=== PATIENT | female | born 1965 | race Caucasian/White ===

== ENCOUNTER 2017-03-08 14:25 | Emergency (ER) | payer OTHER, MEDICARE, MEDICAID ==
[~2017-03-08] VITALS: Ht 172.7 cm; Wt 86.4 kg
[~2017-03-08 14:25] MED LIST: ALBU18HF INH; ATOR10TA66 PO; CITA40TA13 PO; FLUT9.9S NS; GABA800T2 PO; HYDR-3825 PO; IBUP-1827 PO; LEVO125T6 PO; LORA1TAB PO; MELA1TAB16 PO; METH750T3 PO; OMEP20CA11 PO
[2017-03-08 14:29] VITALS: BP 122/75; PULSE 105; RESP 16; O2SAT 97
--- NOTE | 2017-03-08 14:53 | DRSVH ---
PROCEDURE: CT BRAIN WITHOUT CONTRAST ([id number]) INDICATIONS: trauma TECHNIQUE: Noncontrast 4.5 mm thick angled axial sections acquired from the foramen magnum to the vertex, with c oronal reformats. COMPARISON: [facility], CT, CT BRAIN WO CON, 08/17/2015, 10:44. FINDINGS: Image quality: Excellent. CSF spaces: Basal cisterns are patent. No extra-axial fluid collections. Ventricles are normal in size and shape. Brain: No midline shift. No intracranial masses or hemorrhage. Focal resection cavity versus encep halomalacia within the right cerebellum is unchanged. Locke-white matter interface is normal. Skull and face: Suboccipital craniectomy has been performed , as before. Calvarium and visualized fa cial bones are otherwise intact, without suspicious lesions. Sinuses: Visualized sinuses and mastoids are clear. IMPRESSION: 1. Postsurgical sequelae. 2. No acute process. Dictated by: Bess Castellanos M.D. on 03/08/2017 at 14:51 Approved by: Bess Castellanos M.D. on 03/08/2017 at 14:52
--- NOTE | 2017-03-08 15:17 | ED.REPORT ---
HPI-Trauma Minor / Fall Date of Service Mar 08, 2017 ED Provider: Laith Roy MD A 51 year old female with a history of brain cancer s/p brain tumor resection x2 , thyroid cancer s/p thyroidectomy and lung cancer presents to the ED complaining of lightheadedness. The pt fell two days ago when she tripped on her cat, hitting her head on the carpeted floor. She did not lose consciousness but vomited two hours later. Since the fall, the pt has been lightheaded and finds that she is unable to sleep normally. She denies chest pain, shortness of breath or abnormal headache. The pt has been remaining hydrated and does not believe that her symptoms are due to dehydration. Nursing Notes Stated Complaint: LIGHT HEADED RECENT FALL Chief Complaint: Head, Face, Neck Trauma Allergies: Coded Allergies: No Known Allergies (Verified Allergy, Unknown, 03/08/17) Scheduled Atorvastatin Calcium (Atorvastatin Calcium) 10 Mg Tablet 10 MG PO DAILY Citalopram (Citalopram) 40 Mg Tablet 40 MG PO DAILY Fluticasone Propionate (Flonase Allergy Relief) 50 Mcg/Actuation [place].susp 9.9 ML NS DAILY Gabapentin (Gabapentin) 800 Mg Tablet 800 MG PO TID Levothyroxine (Levothyroxine) 125 Mcg Tablet 125 MCG PO DAILY Omeprazole (Omeprazole) 20 Mg Capsule.dr 20 MG PO DAILY Scheduled PRN Albuterol Sulfate (Ventolin HFA Inhaler) 200 Puff/18 Gm Inhaler 1 PUFF INH Q4 PRN PRN For Wheezing Hydrocodone-Acetaminophen 7.5-325 mg (Hydrocodone-Acetaminophen 7.5-325 mg) 1 Each Tablet 1 TABLET PO Q4H PRN PRN For Pain Ibuprofen (Ibuprofen) 600 Mg Tablet 600 MG PO TID PRN PRN For Pain Lorazepam (Lorazepam) 1 Mg Tablet 1 MG PO BID PRN PRN For Insomnia Melatonin/Pyridoxine (Melatonin 5 mg Tablet) 1 Each Tablet 1 EACH PO HS PRN PRN Insomnia Methocarbamol (Methocarbamol) 750 Mg Tablet 750 MG PO Q6H PRN PRN For Spasm General Time Seen by MD: 14:34 Chief Complaint Other (Lightheadedness) Hx Obtained From: Patient Arrived By: Walk-in Onset Occurred: 2 days ago Recent Healthcare: No recent hospitalization, Recent doctor visit Similar Sx Previous: No Past Medical History Past Medical History brain, lung and thyroid cancer Reports: Cancer, GERD Reports: Depression, Thyroid disease Past Surgical History right wrist surgery shoulder surgery thyroidectomy 2 brain tumors resected Smoking History Heavy Tobacco Smoker Social History Alcohol Use: Denies alcohol use Drug Use: Denies drug use Ambulatory Status Independent Review of Systems Review of Systems Note: unable to sleep normally Constitutional: Denies: Fever Respiratory: Denies: Non-productive cough, Shortness of breath Musculoskeletal: Denies: Back pain, Neck pain Skin: Denies Rash Neurologic: Reports: Lightheaded, Denies: Headache Complete sys rev & neg: except as marked. Cardiovascular: Denies: Chest pain GI: Reports: Vomiting, Denies: Abdominal pain Physical Exam Initial Vital Signs Vital Signs (First) Date Time Temp Pulse Resp B/P Pulse Ox O2 Delivery O2 Flow Rate FiO2 03/08/17 14:29 36.7 105 16 122/75 97 Room Air Initial VS: Reviewed General/Constitutional: Awake, Alert Neck: Atraumatic, Supple, Full range of motion Head / Eyes: Normocephalic, PERRL, EOMI subacute abrasion on the right forehead ENT: Atraumatic, Airway patent, Mucous membranes moist, Tympanic membs NL Respiratory / Chest: Atraumatic, Breath sounds NL, Breath sounds = bilat, No respiratory distress Cardiovascular: Heart rate NL, Regular rhythm, Heart sounds NL, No murmurs Abdomen: Atraumatic, Soft, Non-tender Back: Atraumatic, Full range of motion Upper Extremity / MS: Atraumatic, Full range of motion Lower Extremity / Pelvis / MS: Atraumatic, Full range of motion, No edema Skin: Color NL, No rash, Warm, Dry Neurologic: Oriented X3, Speech NL, No motor deficits, No sensory deficits, CN II - XII intact Psychiatric: Affect NL, Mood NL Interpretation & Diagnostics CT Head Interpretation IMPRESSION: 1. Postsurgical sequelae. 2. No acute process. Dictated by: Bess Castellanos M.D. on 03/08/2017 at 14:51 Approved by: Bess Castellanos M.D. on 03/08/2017 at 14:52 Interpretation / Wet Read by: Interpret - Radiologist Re-Eval/Medical Decision Med Decision/Clinical Course 51-year-old female history of brain tumor presenting status post, fall and head trauma several days ago. CT brain no acute pathology. Her neurological exam is normal. I discussed with her that I recommended labs for her vomiting and lightheadedness. She declined any further testing. She understands the risk of the possibility of . Return precautions given. Source of Hx: Old records Re-Evaluation/Progress : Time of Eval: 15:15 Patient Status: Condition improved Re-Evaluation/Progress Note: The diagnosis and plan for discharge are discussed. The pt understands and agrees with the plan. All questions are addressed at this time. Counseled Regarding: Diagnosis, Lab results, Need for follow-up, When/why to return to ED Discharge & Departure Impression: Primary Impression: Concussion Encounter type: initial encounter Loss of consciousness presence/duration: without LOC Qualified Code: S06.0X0A - Concussion without loss of consciousness, initial encounter Disposition: Home Discharge Condition All VS Reviewed: Yes Condition: Stable Patient Instructions: Concussion (ED) Additional Instructions: Thank you for entrusting us with your care. You have declined further labs or workup. We cannot be sure without further testing, but we suspect that you have a concussion. Concussion symptoms include confusion, headache, ringing ears, lightheadedness and dizziness. These symptoms can last up to four weeks. Go home and rest. Call your primary care physician to arrange a follow up appointment in the next several days. Return to the emergency department if you develop any new or worsening symptoms including worsening headache, vomiting, confusion, fever, blurred vision, difficulty speaking/swallowing, weakness or numbness/tingling. Referrals: Lizette Ordoñez (PCP) Scribe Attestation Portions of this note were transcribed by He Molina. I, Dr. Roy personally performed the history, physical exam and medical decision-making; I reviewed and confirmed the accuracy of the information in the transcribed note. copies to: Lizette Ordoñez Ben M MD Mar 08, 2017 15:16 HE MOLINA Mar 08, 2017 15:19
[2017-03-08 15:41] VITALS: BP 122/75; PULSE 105; RESP 16; O2SAT 97
== END 2017-03-08 15:30 | disposition home or self-care (01) ==
LOC: SED 14:25
DX: S06.0X0A Concussion without loss of consciousness, initial encounter (principal); W01.198A Fall on same level from slipping, tripping and stumbling with subsequent striking against other object, initial encounter; Y93.9 Activity, unspecified; Y92.9 Unspecified place or not applicable; Y99.8 Other external cause status; K21.9 Gastro-esophageal reflux disease without esophagitis; Z85.841 Personal history of malignant neoplasm of brain; Z85.118 Personal history of other malignant neoplasm of bronchus and lung; Z85.850 Personal history of malignant neoplasm of thyroid; F17.200 Nicotine dependence, unspecified, uncomplicated

== ENCOUNTER 2017-03-08 17:06 | Emergency (ER) | payer OTHER, MEDICARE, MEDICAID ==
[~2017-03-08] VITALS: Ht 172.7 cm; Wt 86.4 kg
[2017-03-08 17:17] VITALS: BP 123/78; PULSE 101; RESP 16; O2SAT 98
--- NOTE | 2017-03-08 18:30 | ED.REPORT ---
HPI-General Illness Date of Service Mar 08, 2017 ED Provider: Ernie Casillas MD Patient is a 51 year old female with a history of brain cancer, thyroid cancer and lung cancer who presents to the ED complaining of an episode of emesis after leaving the ED earlier today. Associated symptoms include lightheadedness , nausea, abdominal pain, diarrhea and constipation. Patient also reports a headache but states it is not different from her normal headaches. She denies losing consciousness, dysuria, rectal pain or memory problems more than normal. The patient reports that she feels constipated because she hasn't been able to have a bowel movement after having diarrhea today but feels like she needs to go. Patient reports that she fell a few days ago, hit her head and has since had two episodes of emesis since last night. She was seen earlier today in the ED and had a brain CT that showed no evidence of a brain bleed. Patient is not currently on anticoagulants. Nursing Notes Stated Complaint: RECENT FALL/ LIGHTHEADED - ER RETURN Chief Complaint: General Complaint Nursing Notes Reviewed: Yes Allergies: Coded Allergies: No Known Allergies (Verified Allergy, Unknown, 03/08/17) Scheduled Atorvastatin Calcium (Atorvastatin Calcium) 10 Mg Tablet 10 MG PO DAILY Citalopram (Citalopram) 40 Mg Tablet 40 MG PO DAILY Fluticasone Propionate (Flonase Allergy Relief) 50 Mcg/Actuation [place].susp 9.9 ML NS DAILY Gabapentin (Gabapentin) 800 Mg Tablet 800 MG PO TID Levothyroxine (Levothyroxine) 125 Mcg Tablet 125 MCG PO DAILY Omeprazole (Omeprazole) 20 Mg Capsule.dr 20 MG PO DAILY Scheduled PRN Albuterol Sulfate (Ventolin HFA Inhaler) 200 Puff/18 Gm Inhaler 1 PUFF INH Q4 PRN PRN For Wheezing Hydrocodone-Acetaminophen 7.5-325 mg (Hydrocodone-Acetaminophen 7.5-325 mg) 1 Each Tablet 1 TABLET PO Q4H PRN PRN For Pain Ibuprofen (Ibuprofen) 600 Mg Tablet 600 MG PO TID PRN PRN For Pain Lorazepam (Lorazepam) 1 Mg Tablet 1 MG PO BID PRN PRN For Insomnia Melatonin/Pyridoxine (Melatonin 5 mg Tablet) 1 Each Tablet 1 EACH PO HS PRN PRN Insomnia Methocarbamol (Methocarbamol) 750 Mg Tablet 750 MG PO Q6H PRN PRN For Spasm General Time Seen by MD: 18:29 Chief Complaint Vomiting Hx Obtained From: Patient Arrived By: Walk-in Sudden in Onset?: Yes Onset Occurred: Yesterday Caused by: Fall on ground Location: : Abdomen: Head Quality: Painful Severity: Current: Moderate Recent Healthcare: Recent doctor visit Similar Sx Previous: Yes Past Medical History Past Medical History brain, lung and thyroid cancer Reports: Cancer, GERD Reports: Depression, Thyroid disease Past Surgical History right wrist surgery shoulder surgery thyroidectomy 2 brain tumors resected Smoking History Heavy Tobacco Smoker Social History Alcohol Use: Denies alcohol use Drug Use: Denies drug use Other Social History: Good social support Ambulatory Status Independent Review of Systems Full Review of Systems GI: Reports: Abdominal pain, Constipation, Diarrhea, Nausea, Vomiting, Denies: Rectal pain Female: Denies: Dysuria Neurologic: Reports: Headache, Lightheaded, Denies: Change LOC, Confusion Complete sys rev & neg: except as marked. Physical Exam Vital Signs Vital Signs Date Time Temp Pulse Resp B/P Pulse Ox O2 Delivery O2 Flow Rate FiO2 03/08/17 17:17 36.5 101 16 123/78 98 Room Air Initial VS: Reviewed General/Constitutional: Awake, Alert Head / Eyes: Atraumatic, Normocephalic Respiratory / Chest: Atraumatic, Breath sounds NL, Breath sounds = bilat, No respiratory distress Cardiovascular: Heart rate NL, Regular rhythm, Heart sounds NL Abdomen: Atraumatic, Soft, BS normoactive Tenderness/Guarding/Rebound: Positive: Tender RLQ..., Tender RUQ... Skin: Atraumatic, Color NL, No rash, Warm, Dry Interpretation & Diagnostics Lab Results Interpretation Result Diagram: 03/08/17 19003/08/17 190 Test 03/08/17 19:00 03/08/17 19:01 White Blood Count 7.0th/mm3 (3.8-10.1) Red Blood Count 4.73mil/mm3 (3.90-5.20) Hemoglobin 14.1g/dL (12.0-15.6) Hematocrit 40.1% (35.0-46.0) Mean Corpuscular Volume 84.8fL (81-100) Mean Corpuscular Hemoglobin 29.8pg (27.0-35.0) Mean Corpuscular Hemoglobin Concent 35.2% (32.0-37.0) Red Cell Distribution Width 12.0% (12.3-15.4) Platelet Count 236bil/L (150-400) Neutrophils (%) (Auto) 68.6% (40-74) Lymphocytes (%) (Auto) 23.8% (14-46) Monocytes (%) (Auto) 6.6% (4-12) Eosinophils (%) (Auto) 0.6% (0-5) Basophils (%) (Auto) 0.1% (0-3) Sodium Level 139mEq/L (134-144) Potassium Level 4.0mEq/L (3.5-5.2) Chloride Level 99mEq/L (97-108) Carbon Dioxide Level 25mmol/L (18-29) Blood Urea Nitrogen 10mg/dL (6-24) Creatinine 0.64mg/dL (0.57-1.00) Estimat Glomerular Filtration Rate 139mL/min (>59) Glucose Level 102mg/dL (60-99) Calcium Level 9.4mg/dL (8.5-10.1) Magnesium Level 2.0mg/dL (1.6-2.6) Total Bilirubin 0.4mg/dL (0.0-1.2) Aspartate Amino Transf (AST/SGOT) 12U/L (0-50) Alanine Aminotransferase (ALT/SGPT) 16U/L (0-32) Alkaline Phosphatase 80U/L (25-150) Total Protein 7.3g/dL (6.4-8.4) Albumin 4.3g/dL (3.4-5.0) Lipase 17U/L (13-60) Hold [place] Top Tube Received (Received) Re-Eval/Medical Decision Med Decision/Clinical Course 51-year-old female who has had nausea and vomiting for approximately 24 hours. There is a history of a [employer] tumor treated with surgery and chemotherapy and radiation treatment and treatment completed several years ago. CT brain for previous visit today does not show any acute injury. Given her nausea and vomiting and right upper quadrant tenderness I was concerned about the possibility of gallstone disease. This was explained to the patient as well as the possible implications. The plan was to obtain labs and an ultrasound. The patient was initially reluctant, then was persuaded by her family to stay. While we were awaiting ultrasound, the family left and the patient once again decided to leave AGAINST MEDICAL ADVICE. She was advised once again that she could suffer serious illness at this was gallstone disease or something similar and not treated, she nonetheless insisted on being discharged. I did not find any reason to believe that she was not capable of making informed decision and she clearly understood my concerns. At her insistence she was discharged AGAINST MEDICAL ADVICE and was encouraged to return at any point if she was feeling worse. The patient did not wait for discharge instructions. Following her discharge, labs were reviewed, there was no clinically significant abnormality present. As noted above, imaging was not completed. Source of Hx: Old records Summary of Info: Brain CT from earlier today (03/08/17): IMPRESSION: 1. Postsurgical sequelae. 2. No acute process. Dictated by: Bess Castellanos M.D. on 03/08/2017 at 14:51 Approved by: Bess Castellanos M.D. on 03/08/2017 at 14:52 Time of Eval: 19:26 Re-Evaluation/Progress Note: Patient is requesting to leave AMA. Discussed risk of possible severe illness related to gallstone disease. Patient understands the risk and wants to leave because she has been here over two hours. Advised that she may return at any time and encouraged to return if she gets worse. Counseled Regarding: When/why to return to ED Discharge & Departure Departure Notes Patient was verbally advised to use ondansetron which she has as needed for nausea and vomiting. She was advised to return to emergency department immediately for increasing bowel pain fevers or vomiting. Also advised her to follow up with her primary care as soon as possible. Primary Impression: Vomiting Vomiting type: unspecified Vomiting Intractability: intractable Nausea presence: with nausea Qualified Code: R11.2 - Nausea with vomiting, unspecified Disposition: AGAINST MEDICAL ADVICE Discharge Condition All VS Reviewed: Yes Condition: Stable Scribe Attestation Portions of this note were transcribed by Evelia Parsons. I, Dr. Casillas personally performed the history, physical exam and medical decision-making; I reviewed and confirmed the accuracy of the information in the transcribed note. Signed by: Ricci Perry, 03/08/17 Ernie Casillas MD Mar 08, 2017 18:30 Berna Parsons Mar 08, 2017 18:42
[2017-03-08 19:07] LABS: BASOPHILS % (AUTO) 0.1 % (0-3); EOSINOPHILS % (AUTO) 0.6 % (0-5); MONOCYTES % (AUTO) 6.6 % (4-12); Mean Corpuscular Hemoglobin 29.8 pg (27.0-35.0); Mean Corpuscular Volume 84.8 fL (81-100); NEUTROPHILS % (AUTO) 68.6 % (40-74); Platelet Count 236 bil/L (150-400)
== END 2017-03-08 19:23 | disposition left against medical advice (07) ==
LOC: SED 17:06
DX: R11.2 Nausea with vomiting, unspecified (principal); R42 Dizziness and giddiness; R19.7 Diarrhea, unspecified; K59.00 Constipation, unspecified; R10.31 Right lower quadrant pain; R51 Headache; R10.11 Right upper quadrant pain; K21.9 Gastro-esophageal reflux disease without esophagitis; E07.9 Disorder of thyroid, unspecified; F32.9 Major depressive disorder, single episode, unspecified; Z53.29 Procedure and treatment not carried out because of patient's decision for other reasons